=== PATIENT | female | born 1960 | race African-American/Black ===

== ENCOUNTER 2021-10-09 12:13 | Emergency (ER) | payer BC, OTHER ==
[2021-10-09 12:37] VITALS: BP 109/61; PULSE 102; RESP 18; TEMP 98.4
[2021-10-09] MEDS ORDERED: KETOROLAC 15 MG/ML 1 ML VIAL IVP STA (12:49)
[2021-10-09] MEDS ORDERED: SODIUM CHLORIDE 0.9% 1,000 ML IV ONE (12:49)
[2021-10-09] MEDS ORDERED: ONDANSETRON 4 MG/2 ML VIAL IVP STA (12:49)
[2021-10-09] MEDS ORDERED: SODIUM CHLORIDE 0.9% 500 ML 500 ML IV ONE (12:49)
[2021-10-09 13:32] LABS: Basophils % (A) 1 %; Eosinophils # (A) 0.1 k/uL (0-0.7); Eosinophils % (A) 1 %; HGB 15.5 gm/dL (11.4-16.0); Lymphocytes # (A) 1.6 k/uL (1.0-4.8); Lymphocytes % (A) 19 %; MCH 29.5 pg (25.0-35.0); MCHC 32.4 g/dL (31.0-37.0); MCV 91.2 fL (80.0-100.0); Monocytes # (A) 0.4 k/uL (0-1.0); Monocytes % (A) 5 %; Neutrophils # (A) 5.9 k/uL (1.3-7.7); Neutrophils % (A) 73 %; Platelet Count 259 k/uL (150-450); RBC 5.26 m/uL (3.80-5.40); RDW 13.3 % (11.5-15.5); WBC 8.2 k/uL (3.8-10.6)
[2021-10-09 13:45] LABS: ALT 14 U/L (4-34); AST 20 U/L (14-36); African American GFR (CKD) >90 (>60 ml/min/1.73 sqM); Albumin 4.3 g/dL (3.5-5.0); Alkaline Phosphatase 87 U/L (38-126); Anion Gap 12 mmol/L; Blood Urea Nitrogen 13 mg/dL (7-17); Calcium 9.7 mg/dL (8.4-10.2); Carbon Dioxide 24 mmol/L (22-30); Chloride 103 mmol/L (98-107); Glucose 132 mg/dL (74-99); Non-African American GFR(CKD) 89 (>60 ml/min/1.73 sqM); Sodium 139 mmol/L (137-145); Total Bilirubin 0.8 mg/dL (0.2-1.3); Total Protein 6.7 g/dL (6.3-8.2)
--- NOTE | 2021-10-09 14:14 | ED ---
General Adult HPI - General Chief complaint: Headache Stated complaint: head pressure, nausea Time Seen by Provider: 10/09/21 12:39 Source: patient, RN notes reviewed Mode of arrival: ambulatory Limitations: no limitations - History of Present Illness Initial comments: 61-year-old female presents emergency Department with chief complaint ongoing congestion. Patient states she's had sinus decongestant May. Patient states that she was recently seen on Wednesday at [facility] had a CAT scan of her brain, was given antibiotics. Patient states has not improved. Patient states she has some nausea. No fevers or chills no blurred vision no focal weakness denies any difficulty swelling states the drainage in her throat. Patient denies any chest pain no abdominal pain. No dysuria no other complaints. - Related Data Home Medications Medication Instructions Recorded Confirmed Fluticasone [place] [Flonase 2 spray EA NOSTRIL DAILY 10/09/21 10/09/21 [place]] Levofloxacin [Levaquin] 500 mg PO DAILY 10/09/21 10/09/21 Loratadine [Claritin] 10 mg PO DAILY 10/09/21 10/09/21 diphenhydrAMINE [Benadryl] 25 mg PO QID PRN 10/09/21 10/09/21 Previous Rx's Medication Instructions Recorded Ondansetron Odt [Zofran Odt] 4 mg PO Q8HR PRN #10 tab 10/09/21 Allergies Allergy/AdvReac Type Severity Reaction Status Date / Time Sulfa (Sulfonamide Allergy Rash/Hives Verified 10/09/21 13:44 Antibiotics) sulfamethoxazole Allergy Rash/Hives Verified 10/09/21 13:44 [From Bactrim] trimethoprim [From Bactrim] Allergy Rash/Hives Verified 10/09/21 13:44 Review of Systems ROS Statement: Those systems with pertinent positive or pertinent negative responses have been documented in the HPI. ROS Other: All systems not noted in ROS Statement are negative. Past Medical History Past Medical History: No Reported History History of Any Multi-Drug Resistant Organisms: None Reported Past Surgical History: No Surgical Hx Reported Past Psychological History: Anxiety Smoking Status: Current every day smoker Past Alcohol Use History: None Reported Past Drug Use History: None Reported General Exam Limitations: no limitations General appearance: alert, in no apparent distress Head exam: Present: atraumatic, normocephalic, normal inspection Eye exam: Present: normal appearance, PERRL, EOMI. Absent: scleral icterus, conjunctival injection, periorbital swelling ENT exam: Present: normal exam, normal oropharynx, mucous membranes moist Neck exam: Present: normal inspection, full ROM. Absent: tenderness, meningismus, lymphadenopathy Respiratory exam: Present: normal lung sounds bilaterally. Absent: respiratory distress, wheezes, rales, rhonchi, stridor Cardiovascular Exam: Present: regular rate, normal rhythm, normal heart sounds. Absent: systolic murmur, diastolic murmur, rubs, gallop, clicks GI/Abdominal exam: Present: soft, normal bowel sounds. Absent: distended, tenderness, guarding, rebound, rigid Neurological exam: Present: alert, oriented X3 Skin exam: Present: warm, dry, intact, normal color. Absent: rash Course Vital Signs 10/09/21 12:32 Temperature 98.4 F Pulse Rate 102 H Respiratory 18 Rate Blood Pressure 109/61 O2 Sat by Pulse 100 Oximetry Medical Decision Making - Medical Decision Making 61-year-old female presented for head pressure and sinus congestion did obtain the CT from [facility] which showed no acute abnormality patient is given Levaquin and which she is currently on. I do not see any acute abnormality on exam, labs are is unremarkable. Patient was advised follow-up with ENT and again will be advised to follow-up with ENT. - Lab Data Result diagrams: 10/09/21 12:57 10/09/21 12:57 Lab Results 10/09/21 10/09/21 10/09/21 Range/Units 12:57 12:57 12:57 WBC 8.2 (3.8-10.6) k/uL RBC 5.26 (3.80-5.40) m/uL Hgb 15.5 (11.4-16.0) gm/dL Hct 48.0 H (34.0-46.0) % MCV 91.2 (80.0-100.0) fL MCH 29.5 (25.0-35.0) pg MCHC 32.4 (31.0-37.0) g/dL RDW 13.3 (11.5-15.5) % Plt Count 259 (150-450) k/uL MPV 7.0 Neutrophils % 73 % Lymphocytes % 19 % Monocytes % 5 % Eosinophils % 1 % Basophils % 1 % Neutrophils # 5.9 (1.3-7.7) k/uL Lymphocytes # 1.6 (1.0-4.8) k/uL Monocytes # 0.4 (0-1.0) k/uL Eosinophils # 0.1 (0-0.7) k/uL Basophils # 0.0 (0-0.2) k/uL Sodium 139 (137-145) mmol/L Potassium 4.0 (3.5-5.1) mmol/L Chloride 103 (98-107) mmol/L Carbon Dioxide 24 (22-30) mmol/L Anion Gap 12 mmol/L BUN 13 (7-17) mg/dL Creatinine 0.74 (0.52-1.04) mg/dL Est GFR (CKD-EPI)AfAm >90 (>60 ml/min/1.73 sqM) Est GFR (CKD-EPI)NonAf 89 (>60 ml/min/1.73 sqM) Glucose 132 H (74-99) mg/dL Calcium 9.7 (8.4-10.2) mg/dL Total Bilirubin 0.8 (0.2-1.3) mg/dL AST 20 (14-36) U/L ALT 14 (4-34) U/L Alkaline Phosphatase 87 (38-126) U/L Total Protein 6.7 (6.3-8.2) g/dL Albumin 4.3 (3.5-5.0) g/dL Coronavirus (PCR) Not Detected (Not Detectd) Disposition Clinical Impression: Congestion of throat, Pressure in head Disposition: HOME SELF-CARE Condition: Stable Instructions (If sedation given, give patient instructions): Acute Headache (ED) Additional Instructions: Please return to the Emergency Department if symptoms worsen or any other concerns. Prescriptions: Ondansetron Odt [Zofran Odt] 4 mg PO Q8HR PRN #10 tab PRN Reason: Nausea Is patient prescribed a controlled substance at d/c from ED?: No Referrals: None,Stated [Primary Care Provider] - 1-2 days Fausto Soliman MD [STAFF PHYSICIAN] - 1-2 days Time of Disposition: 14:14
== END 2021-10-09 14:24 | disposition home or self-care (01) ==
LOC: EC 12:13
DX: R09.89 Other specified symptoms and signs involving the circulatory and respiratory systems (principal); R51.9 Headache, unspecified; R11.0 Nausea; F17.200 Nicotine dependence, unspecified, uncomplicated; Z20.822 Contact with and (suspected) exposure to COVID-19; Z88.2 Allergy status to sulfonamides
CPT/HCPCS: 36415; 80053; 85025; 87635; 99283; 96374; 96375; 96361; J2405; J1885

== ENCOUNTER 2023-11-09 18:26 | Emergency (ER) | payer OTHER ==
[2023-11-09 18:34] VITALS: RESP 18
--- NOTE | 2023-11-09 19:44 | ED ---
General Adult HPI - General Chief complaint: Recheck/Abnormal Lab/Rx Stated complaint: ear pain Time Seen by Provider: 11/09/23 19:42 Source: patient, RN notes reviewed Mode of arrival: ambulatory Limitations: no limitations - History of Present Illness Initial comments: 63-year-old female presenting with sinus pressure worsening over the past few days. Patient describes itchy ears and "whooshing" noise in ears. States she has been having intermittent dizziness associated with the sinus pressure. States she has been dealing with sinus pressure issues for several years and has had the symptoms previously. She was seen earlier today at [facility] urgent care where they diagnosed her with a sinus infection and prescribed her Augmentin, prednisone, and Flonase. - Related Data Allergies Allergy/AdvReac Type Severity Reaction Status Date / Time Sulfa (Sulfonamide AdvReac Rash/Hives Verified 11/09/23 18:34 Antibiotics) sulfamethoxazole AdvReac Rash/Hives Verified 11/09/23 18:34 [From Bactrim] trimethoprim [From Bactrim] AdvReac Rash/Hives Verified 11/09/23 18:34 Review of Systems ROS Statement: Those systems with pertinent positive or pertinent negative responses have been documented in the HPI. ROS Other: All systems not noted in ROS Statement are negative. Past Medical History Past Medical History: No Reported History Additional Past Surgical History / Comment(s): eptopic Past Psychological History: No Psychological Hx Reported Smoking Status: Current every day smoker Past Alcohol Use History: None Reported Past Drug Use History: None Reported General Exam Limitations: no limitations General appearance: alert, in no apparent distress Head exam: Present: atraumatic, normocephalic, normal inspection Eye exam: Present: normal appearance, PERRL, EOMI. Absent: scleral icterus, conjunctival injection, periorbital swelling ENT exam: Present: normal exam, normal oropharynx, mucous membranes moist, TM's normal bilaterally (Moderate edema behind bilateral TMs, no erythema) Neck exam: Present: normal inspection. Absent: tenderness, meningismus, lymphadenopathy Respiratory exam: Present: normal lung sounds bilaterally. Absent: respiratory distress, wheezes, rales, rhonchi, stridor Cardiovascular Exam: Present: regular rate, normal rhythm, normal heart sounds. Absent: systolic murmur, diastolic murmur, rubs, gallop, clicks Neurological exam: Present: alert, oriented X3, CN II-XII intact Psychiatric exam: Present: normal affect, normal mood Skin exam: Present: warm, dry, intact, normal color. Absent: rash Course Vital Signs 11/09/23 11/09/23 11/09/23 18:28 20:57 21:21 Temperature 97.8 F 98.1 F Pulse Rate 116 H 79 71 Respiratory 18 18 18 Rate Blood Pressure 120/74 120/66 121/68 O2 Sat by Pulse 98 100 100 Oximetry Medical Decision Making - Medical Decision Making Was pt. sent in by a medical professional or institution (, [employer], SOIL [employer]CHN[employer]IST, urgent care, hospital, or longterm...) When possible be specific @ -No Did you speak to anyone other than the patient for history (EMS, parent, family, police, friend...)? What history was obtained from this source @ -No Did you review nursing and triage notes (agree or disagree)? Why? @ -I reviewed and agree with nursing and triage notes Were old charts reviewed (outside hosp., previous admission, EMS record, old EKG, old radiological studies, urgent care reports/EKG's, longterm records)? Report findings @ -No old charts were reviewed Differential Diagnosis (chest pain, altered mental status, abdominal pain women, abdominal pain men, vaginal bleeding, weakness, fever, dyspnea, syncope, headache, dizziness, GI bleed, back pain, seizure, CVA, palpatations, mental health, musculoskeletal)? @ -Acute sinusitis, otitis media, vertigo, viral URI EKG interpreted by me (3pts min.). @ -None X-rays interpreted by me (1pt min.). @ -None done CT interpreted by me (1pt min.). @ -None done U/S interpreted by me (1pt. min.). @ -None done What testing was considered but not performed or refused? (CT, X-rays, U/S, labs)? Why? @ -None What meds were considered but not given or refused? Why? @ -None Did you discuss the management of the patient with other professionals (professionals i.e. [employer], SOIL TECHNOLOGIST, lab, RT, psych nurse, social work supervisor, senior actuarial analyst, teacher, training officer, home health care case manager)? Give summary @ -No Was smoking cessation discussed for >3mins.? @ -No Was critical care preformed (if so, how long)? @ -No Were there social determinants of health that impacted care today? How? (Homelessness, low income, unemployed, alcoholism, drug addiction, transportation, low edu. Level, literacy, decrease access to med. care, halfway, rehab)? @ -No Was there de-escalation of care discussed even if they declined (Discuss DNR or withdrawal of care, Hospice)? DNR status @ -No What co-morbidities impacted this encounter? (DM, HTN, Smoking, COPD, CAD, C ancer, CVA, ARF, Chemo, Hep., AIDS, mental health diagnosis, sleep apnea, morbid obesity)? @ -None Was patient admitted / discharged? Hospital course, mention meds given and route, prescriptions, significant lab abnormalities, going to OR and other pertinent info. @ -Patient was discharged. This is a 63-year-old female presenting with sinus congestion worsening over the past 3 days. Patient was prescribed Augmentin, prednisone, and Flonase back today at [facility] urgent care after diagnosis of sinus infection. No red flag symptoms. Physical examination remarkable for mild edema behind bilateral TMs. Cepheid negative. Discussed findings with patient. Discussed diagnosis of acute sinusitis as well as supportive care. Advised to continue Augmentin, prednisone, and Flonase as prescribed. Also recommended patient take daily antihistamine such as Claritin or Zyrtec. Return precautions discussed. Follow-up with PCP with persistent symptoms. Case was discussed with my ED attending Dr. Miranda. Patient discharged in stable condition. Undiagnosed new problem with uncertain prognosis? @ -No Drug Therapy requiring intensive monitoring for toxicity (Heparin, Nitro, Insulin, Cardizem)? @ -No Were any procedures done? @ -No Diagnosis/symptom? @ -Acute sinusitis Acute, or Chronic, or Acute on Chronic? @ -Acute Uncomplicated (without systemic symptoms) or Complicated (systemic symptoms)? @ -Uncomplicated Side effects of treatment? @ -No Exacerbation, Progression, or Severe Exacerbation? @ -No Poses a threat to life or bodily function? How? (Chest pain, USA, AR, pneumonia, PE, COPD, DKA, ARF, appy, cholecystitis, CVA, Diverticulitis, Homicidal, Suicidal, threat to staff... and all critical care pts) @ -No - Lab Data Lab Results 11/09/23 Range/Units 19:45 Influenza Type A (PCR) Not Detected (Not Detectd) Influenza Type B (PCR) Not Detected (Not Detectd) RSV (PCR) Not Detected (Not Detectd) SARS-CoV-2 (PCR) Not Detected (Not Detectd) Disposition Clinical Impression: Acute sinusitis Disposition: HOME SELF-CARE Condition: Stable Additional Instructions: Take Claritin or Zyrtec daily for sinus congestion. Continue Augmentin, prednisone, and Flonase as prescribed. Please return to the Emergency Department if symptoms worsen or any other concerns. Is patient prescribed a controlled substance at d/c from ED?: No Referrals: None,Stated [Primary Care Provider] - 1-2 days Time of Disposition: 21:08
[2023-11-09 21:22] VITALS: BP 121/68; PULSE 71; TEMP 98.1
== END 2023-11-09 21:22 | disposition home or self-care (01) ==
LOC: EC 18:26 → MERGE 18:26 → EC 21:22
DX: H92.09 Otalgia, unspecified ear
CPT/HCPCS: 87636; 99283